=== PATIENT | female | born 2000 | race Two or more races ===

== ENCOUNTER 2022-01-27 11:14 | Outpatient (CLI) | payer OTHER | END 2022-01-27 13:00 | disposition home or self-care (01) | LOC: PRENATAL 11:14 | PROVIDERS: ATTEND Obstetrics & Gynecology Maternal & Fetal Medicine | DX: O35.3XX0 Maternal care for (suspected) damage to fetus from viral disease in mother, not applicable or unspecified (principal); Z3A.20 20 weeks gestation of pregnancy ==

== ENCOUNTER 2022-02-04 14:05 | Outpatient (CLI) | payer OTHER | END 2022-02-04 14:31 | disposition home or self-care (01) | LOC: NST 14:05 | PROVIDERS: ATTEND Specialist | DX: Z34.82 Encounter for supervision of other normal pregnancy, second trimester (principal) ==

== ENCOUNTER 2022-03-24 15:52 | Outpatient (CLI) | payer OTHER | END 2022-03-24 16:50 | disposition home or self-care (01) | LOC: PRENATAL 15:52 | PROVIDERS: ATTEND Obstetrics & Gynecology Maternal & Fetal Medicine | DX: O26.849 Uterine size-date discrepancy, unspecified trimester (principal); Z3A.28 28 weeks gestation of pregnancy ==

== ENCOUNTER 2022-05-01 13:31 | Outpatient (CLI) | payer OTHER ==
[~2022-05-01] VITALS: Ht 149.9 cm; Wt 56.2 kg
== END 2022-05-02 10:21 | disposition home or self-care (01) ==
LOC: OBS/DEL 13:31
PROVIDERS: ATTEND Specialist
DX: O23.33 Infections of other parts of urinary tract in pregnancy, third trimester (principal); N39.0 Urinary tract infection, site not specified; Z3A.33 33 weeks gestation of pregnancy; Z91.013 Allergy to seafood

== ENCOUNTER 2022-05-22 13:56 | Outpatient (CLI) | payer OTHER | END 2022-05-22 15:00 | disposition home or self-care (01) | LOC: PRENATAL 13:56 | PROVIDERS: ATTEND Obstetrics & Gynecology Maternal & Fetal Medicine | DX: O26.849 Uterine size-date discrepancy, unspecified trimester (principal); O36.8199 Decreased fetal movements, unspecified trimester, other fetus; Z3A.36 36 weeks gestation of pregnancy ==

== ENCOUNTER 2022-06-04 05:27 | Inpatient (IN) | payer OTHER ==
[~2022-06-04] VITALS: Ht 149.9 cm; Wt 59.0 kg
[2022-06-04] MEDS ORDERED: PRENATABS RX T1 EACH PO (06:01)
== END 2022-06-06 13:45 | disposition home or self-care (01) | DRG 768 ==
LOC: LDR 05:27 → OB/GYN 15:39
PROVIDERS: ADMIT Specialist; ATTEND Specialist
PROC: 10E0XZZ Delivery of Products of Conception, External Approach (ICD-10-PCS; principal; 2022-06-04)
PROC: 0DQR0ZZ Repair Anal Sphincter, Open Approach (ICD-10-PCS; 2022-06-04)
PROC: 4A1HXCZ Monitoring of Products of Conception, Cardiac Rate, External Approach (ICD-10-PCS; 2022-06-04)
DX: O70.21 Third degree perineal laceration during delivery, IIIa (principal); Z37.0 Single live birth; O99.824 Streptococcus B carrier state complicating childbirth; Z3A.38 38 weeks gestation of pregnancy; Z20.822 Contact with and (suspected) exposure to COVID-19

== ENCOUNTER 2023-04-23 19:02 | Emergency (ER) | payer OTHER ==
[~2023-04-23] VITALS: Ht 149.9 cm; Wt 48.1 kg
[~2023-04-23 19:02] MED LIST: PRENATABS RX T1 EACH PO
[2023-04-23] MEDS ORDERED: KETOROLAC TROMETHAMINE 30 MG VIAL IM STA (20:18)
[2023-04-23] MEDS ORDERED: CEFTRIAXONE SODIUM 1,000 MG VIAL IM STA (20:18)
== END 2023-04-23 21:16 | disposition home or self-care (01) ==
LOC: ER 19:03
DX: H60.8X1 Other otitis externa, right ear (principal); Z91.013 Allergy to seafood

== ENCOUNTER 2023-04-30 11:49 | Emergency (ER) | payer OTHER ==
[~2023-04-30] VITALS: Ht 149.9 cm; Wt 48.1 kg
[2023-04-30] MEDS ORDERED: GUAIFENESIN/DEXTROMETHORPHAN 100 MG/5 ML ML PO ONE (16:15)
[2023-04-30] MEDS ORDERED: CETIRIZINE HCL 5 MG/5 ML ML PO ONE (16:15)
[2023-04-30 16:45] LABS: HEMATOCRIT 37.8 % (36.0-45.00); HEMOGLOBIN 12.8 g/dL (12.0-15.00); MEAN CELL VOLUME 79.7 fL (80.00-100.00); MEAN CORPUSCULAR HGB CONC 33.9 g/dl (32.0-36.0); PLATELET COUNT 255 K/uL (150-450); RED BLOOD COUNT 4.74 M/uL (4.00-6.00); RED CELL DISTRIBUTION WIDTH 13.4 % (11.5-14.5)
[2023-04-30] MEDS ORDERED: QC TUSSIN DM L118 ML PO (18:32)
[2023-04-30] MEDS ORDERED: ZYRTEC10 MG PO (18:32)
[2023-04-30] MEDS ORDERED: BENZONATATE100 MG PO (18:39)
[2023-04-30] MEDS ORDERED: OSEL75CA PO (18:39)
== END 2023-04-30 18:58 | disposition home or self-care (01) ==
LOC: ER 11:50
PROVIDERS: Nurse Practitioner Family
DX: J10.1 Influenza due to other identified influenza virus with other respiratory manifestations (principal); R53.81 Other malaise; Z20.822 Contact with and (suspected) exposure to COVID-19; Z91.013 Allergy to seafood